=== PATIENT | female | born 1945 | race Caucasian/White ===

== ENCOUNTER 2020-09-25 21:08 | Emergency (ER) | payer MEDICARE, OTHER ==
[~2020-09-25] VITALS: Ht 175.3 cm; Wt 97.8 kg
--- NOTE | 2020-09-25 21:21 | PHYS DOC ---
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 I started to get short of breath today... and I got a sat moniter.. and my stats were going down. .. and down.. 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 and I knew I was getting in trouble.... 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 Pt. patient recently completed her Covid vaccination on Saturday the second of this month- Modern. Patient denies any travel or specific ill contacts. Patient states she is had increased malaise and shortness of breath for last couple days. Bought a home sat monitor and noticed that her sats were gradually going down. Patient has no home oxygen. Patient does report increased fatigue, malaise, and myalgia. Patient did get flu vaccination this year. Patient has an extensive past medical history of Burkitt's lymphoma. Diagnosed first in 2017 and treated for a time at [facility] and then eventually treated at [facility]. Patient has been on various courses of chemotherapy with some episodes of remission. 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 Patient currently on Cyclovir, dapsone, folic acid, oibandronate, mercaptopurine, methotrexate, mirtazapine prednisone. Patient states all her care is conducted at . Has follow-up with Dr. Copeland. also received Covid vaccination first of this month. He is currently not ill. Patient on arrival requiring 4 L nasal cannula to maintain saturations above 92%. Patient states she has never been oxygen dependent previously. Pt. requesting transfer to if possible, states all her care has been there since 2017. Review of Systems: Review of Systems: Constitutional: Denies fever or chills Eyes: Denies change in visual acuity HENT: Denies nasal congestion or sore throat Respiratory: Complaints of shortness of breath and hypoxia ( New finding for pt) Cardiovascular: Denies chest pain or edema GI: Denies abdominal pain, nausea, vomiting, bloody stools or diarrhea : Denies dysuria Musculoskeletal: Complains of generalized weakness Integument: Denies rash Neurologic: Denies headache, fo (complaints of memory and sensory losses) Endocrine: Denies polyuria or polydipsia Lymphatic: Denies swollen glands Psychiatric: History of depression or anxiety Family History: Family History: Noncontributory to presentation Current Medications: Current Meds: See nursing for home meds Allergies: Allergies: No known drug allergies Physical Exam: PE: Constitutional: Moderate acute distress, chronically ill and appearance. [] HENT: Normocephalic, atraumatic, bilateral external ears normal, oropharynx dry, , no oral exudates, nose normal. [] Eyes: PERRLA, EOMI, conjunctiva normal, no discharge. Glasses Neck: Normal range of motion, no tenderness, supple, no stridor. [] Cardiovascular:Heart rate regular rhythm, no murmur [] PMI to the left. Lungs & Thorax: Bilateral breath sounds scattered wheezes and few basilar crackles on auscultation. Central line scars. Abdomen: Bowel sounds normal, soft, no tenderness, no masses, no pulsatile masses. [] Obese. Old surgery scars Skin: Warm, dry, no erythema, no rash. Poor turgor Back: No tenderness, no CVA tenderness. [] Extremities: No tenderness, no cyanosis, no clubbing, ROM intact, ankle edema. Arthritic changes. No cording appreciated Neurologic: Alert and oriented X 3, moves all extremities on request, does have distal sensory but does report decreased sensation sensation in her feet and fin gers secondary to chemotherapy, no focal deficits noted. [] Psychologic: Affect anxious, judgement normal, does have memory issues states has not been the same since she received chemotherapy, mood depressed. EKG: EKG: My interpretation EKG shows a sinus rhythm at 65 bpm. No findings of acute STEMI of contralateral changes. [] Radiology/Procedures: Radiology/Procedures: [][address] [address] IMAGING REPORT Signed PATIENT: FLORENCIO ZENG AACCOUNT: [id number] : 1945 LOCATION: ER AGE: 74 SEX: F EXAM STATUS: REG ER ORD. PHYSICIAN: SYL RODRIGUES MD REASON: respiratory failure PROCEDURE: PORTABLE CHEST 1V Chest AP portable 09/25/2020. Reason for exam: Respiratory failure. No infiltrate or effusion is seen. Heart size and pulmonary vascularity appear normal. IMPRESSION: No acute abnormality. Electronically signed by: Bibi Grullon Jr., MD (09/25/2020 10:23 PM) [facility] DICTATED AND SIGNED BY: BIBI GRULLON Jr, MD DATE: 09/25/202220 CC: SYL RODRIGUES MD; PCP,UNKNOWN ~MTH Heart Score: C/O Chest Pain: N/A HEART Score for Chest Pain: HEART Score for Chest Pain Response (Comments) Value History Slighlty/Non-Suspicious 0 ECG Normal 0 Age > 65 2 Risk Factors 1 or 2 Risk Factors 1 Troponin < Normal Limit 0 Total 3 Risk Factors: Risk Factors: DM, Current or recent (<one month) smoker, HTN, HLP, family history of CAD, obesity. Risk Scores: Score 0 - 3: 2.5% MACE over next 6 weeks - Discharge Home Score 4 - 6: 20.3% MACE over next 6 weeks - Admit for Clinical Observation Score 7 - 10: 72.7% MACE over next 6 weeks - Early Invasive Strategies Course & Med Decision Making: Course & Med Decision Making Pertinent Labs and Imaging studies reviewed. (See chart for details) Patient requesting transfer to since all her care has occurred there for her Burkitt's lymphoma. transferred called at 2330 hrs. Per patient's request Patient eventually accepted at by Impression: 1. Dyspnea 2. Hypoxia- respiratory failure 3. History of Burkitt's lymphoma-multiple courses of chemotherapy/Dx 2016 (Hx. of High Grade Relapses) 4. Anemia hemoglobin 11.1. With macrocytic and hyperchromic indices MCV 118 HCT 38. 5. Thrombocytopenia 136 6. Elevated lactic acid 2.7 7. Concern for sepsis/SIRS in a immunosuppressed patient 8. Post COVID vacination September 13 9. History of coronary artery disease 10. Hyperlipidemia 11. Hypertension 12. 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 History of diastolic dysfunction 15. Gait Disorder [] Dragon Disclaimer: Dragon Disclaimer: This electronic medical record was generated, in whole or in part, using a voice recognition dictation system. Dragon Disclaimer This chart was dictated in whole or in part using Voice Recognition software in a busy, high-work load, and often noisy Emergency Department environment. It may contain unintended and wholly unrecognized errors or omissions. Dragon Disclaimer This chart was dictated in whole or in part using Voice Recognition software in a busy, high-work load, and often noisy Emergency Department environment. It may contain unintended and wholly unrecognized errors or omissions. Dragon Disclaimer This chart was dictated in whole or in part using Voice Recognition software in a busy, high-work load, and often noisy Emergency Department environment. It may contain unintended and wholly unrecognized errors or omissions. SYL RODRIGUES MD Sep 25, 2020 21:20
[2020-09-25 22:02] LABS: BASO # 0.1 x10^3/uL (0.0-0.2); BASO % 1 % (0-3); CALCIUM 8.6 mg/dL (8.5-10.1); CREATININE 0.9 mg/dL (0.6-1.0); EOS # 0.1 x10^3/uL (0.0-0.7); EOS % 1 % (0-3); GFR 61.5; HEMATOCRIT 35.1 % (36.0-47.0); HEMOGLOBIN 11.4 g/dL (12.0-15.5); LYMPH # 0.8 x10^3/uL (1.0-4.8); LYMPH % 9 % (24-48); MEAN CORPUSCULAR HEMOGLOBIN 38 pg (25-35); MEAN CORPUSCULAR HGB CONC 33 g/dL (31-37); MEAN CORPUSCULAR VOLUME 118 fL (79-100); MONO # 0.7 x10^3/uL (0.0-1.1); MONO % 8 % (0-9); NEUT # 7.2 x10^3uL (1.8-7.7); NEUT % 81 % (31-73); PLATELET COUNT 131 x10^3/uL (140-400); POTASSIUM 3.7 mmol/L (3.5-5.1); RED BLOOD COUNT 2.98 x10^6/uL (3.50-5.40); RED CELL DISTRIBUTION WIDTH 15.5 % (11.5-14.5); WHITE BLOOD COUNT 8.9 x10^3/uL (4.0-11.0)
[2020-09-25] MEDS ORDERED: IV NORMAL SALINE 50ML 50 ML ONE (22:12)
[2020-09-25] MEDS ORDERED: AZITHROMYCIN 500 MG VIAL. IV ONE ×2 (22:12→22:17)
[2020-09-25] MEDS ORDERED: IV NORMAL SALINE 250ML 250 ML ONE ×2 (22:12→22:17)
[2020-09-25] MEDS ORDERED: cefTRIAXone SODIUM 1 GM VIAL ONE (22:12)
--- NOTE | 2020-09-25 22:25 | RAD ---
Chest AP portable 09/25/2020. Reason for exam: Respiratory failure. No infiltrate or effusion is seen. Heart size and pulmonary vascularity appear normal. IMPRESSION: No acute abnormality. Electronically signed by: Danny Grullon Jr., MD (09/25/2020 10:23 PM) [facility]ENTERFaby
[2020-09-25 22:27] LABS: ALBUMIN 3.6 g/dL (3.4-5.0); DIRECT BILIRUBIN 0.2 mg/dL (0.0-0.2); MAGNESIUM 2.1 mg/dL (1.8-2.4); TOTAL BILIRUBIN 0.8 mg/dL (0.2-1.0); TOTAL PROTEIN 5.9 g/dL (6.4-8.2)
[2020-09-25 22:29] LABS: BGAS PH 7.39 (7.35-7.45)
[2020-09-25] MEDS ORDERED: AZITHROMYCIN 500 MG in IV NORMAL SALINE 250ML 250 ML IV ONE (22:30)
[2020-09-25] MEDS ORDERED: methylPREDNISolone SOD SUCC PF 125 MG/2 ML VIAL. IV ONE (22:30)
[2020-09-25] MEDS ORDERED: IV RINGERS SOLUTION,LACTATED 1,000 ML IV SCH (22:30)
[2020-09-25] MEDS ORDERED: IV RINGERS SOLUTION,LACTATED 1,000 ML IV ONE (23:30)
--- NOTE | 2020-09-26 00:25 | EKG ---
[facility] ED [facility] [place] [id number] Test Date: 2020-09-25 Test Time: 21:35:53 Pat Name: FLORENCIO ZENG Department: Room: Gender: F Provider Engagement Executive: : 1945 Requested By: SYL RODRIGUES Order Number: [id number] Reading MD: Measurements Intervals [place] Rate: 65 P: 62 NE: 160 QRS: 66 QRSD: 86 T: 56 QT: 418 QTc: 435 Interpretive Statements SINUS RHYTHM NORMAL ECG RI6.02 No previous ECG available for comparison
[2020-09-26 00:48] VITALS: BP 145/72
[2020-09-26 01:59] LABS: BACTERIA,URINE 0 /HPF (0-FEW); BILIRUBIN,URINE NEG (NEG); CLARITY,URINE CLEAR; COLOR,URINE YELLOW; GLUCOSE,URINE NEG (NEG); NITRITE,URINE NEG (NEG); RBC,URINE 0 /HPF (0-2); SQUAMOUS EPITHELIAL CELL,UR MANY /LPF; UROBILINOGEN,URINE 0.2 mg/dL (0.2 mg/dL); WBC,URINE 0 /HPF (0-4)
[2020-09-26 02:14] LABS: BARBITURATES NEG (NEG); BENZODIAZEPINES NEG (NEG); CANNABINOIDS NEG (NEG); COCAINE NEG (NEG); METHADONE NEG (NEG); OPIATES NEG (NEG); PHENCYCLIDINE NEG (NEG)
[2020-09-26 02:21] LABS: AMPHETAMINE/METHAMPHETAMINE NEG (NEG)
[2020-09-26 05:35] LABS: PLT ESTIMATE DECREASED (ADEQUATE); POIKILOCYTOSIS MOD
== END 2020-09-26 00:48 | disposition short-term general hospital (02) ==
LOC: ER 21:08
DX: G62.0 Drug-induced polyneuropathy (principal); T45.1X5A Adverse effect of antineoplastic and immunosuppressive drugs, initial encounter; R09.02 Hypoxemia; D64.9 Anemia, unspecified; D69.6 Thrombocytopenia, unspecified; R74.02 Elevation of levels of lactic acid dehydrogenase [LDH]; E78.5 Hyperlipidemia, unspecified; I25.10 Atherosclerotic heart disease of native coronary artery without angina pectoris; G20 Parkinson's disease; R26.9 Unspecified abnormalities of gait and mobility; F03.90 Unspecified dementia, unspecified severity, without behavioral disturbance, psychotic disturbance, mood disturbance, and anxiety; Y92.89 Other specified places as the place of occurrence of the external cause; R06.02 Shortness of breath
CPT/HCPCS: 36415; 71045; 80048; 80076; 80307; 81001; 82550; 82803; 83605; 83690; 83735; 83880; 84443; 84484; 85025; 85379; 85610; 85730; 87040; 93005; 96361; 96365; 96368; 96375; 99285; J0456; J0696; J2930; J7050; J7120